=== PATIENT | female | born 1975 | race American Indian/Alaskan Native ===

== ENCOUNTER 2021-06-04 14:49 | Emergency (ER) | payer SELFPAY ==
[2021-06-04 16:34] VITALS: BP 127/98
--- NOTE | 2021-06-05 07:59 | Emergency Department Report ---
Abscess Boil HPI - HPI Chief Complaint: Skin/Abscess/Foreign Body Stated Complaint: BOIL (ABSCESS) ON VAGINA Time Seen by Provider: 06/05/21 07:54 Duration: 1 Week Location: Other (left labia majora) History: Yes Pain, Yes Purulent Drainage, No Fever, No Numbness, No Foreign Body, No Previous History, No Insect Bite HPI: 45-year-old female presents to the ER today with complaints of a tender swollen area to her left labia majora. Patient states that started small about 1 week ago but has since gotten worse. She states that while sitting in the waiting room she noticed that the area has started to drain. She denies any injury or insect bites to the area. She denies similar symptoms in the past. She denies any fever or chills. Home Medications: Previous Rx's Medication Instructions Recorded Last Taken Type Ibuprofen [Motrin] 600 mg PO Q8H PRN #30 tablet 06/05/21 Unknown Rx Sulfamethoxazole/Trimethoprim 1 each PO BID #14 tablet 06/05/21 Unknown Rx [Bactrim DS TAB] Allergies/Adverse Reactions: Allergies Allergy/AdvReac Type Severity Reaction Status Date / Time No Known Allergies Allergy Unverified 06/04/21 16:31 ED Review of Systems ROS: Stated complaint: BOIL (ABSCESS) ON VAGINA Other details as noted in HPI Comment: All other systems reviewed and negative Skin: other (abscess left labia majora) ED Past Medical Hx - Past Medical History Previous Medical History?: No - Surgical History Past Surgical History?: Yes Additional Surgical History: - Medications Home Medications: Home Medications Medication Instructions Recorded Confirmed Last Taken Type Ibuprofen [Motrin] 600 mg PO Q8H PRN #30 tablet 06/05/21 Unknown Rx Sulfamethoxazole/Trimethoprim 1 each PO BID #14 tablet 06/05/21 Unknown Rx [Bactrim DS TAB] ED Abscess Boil Physical Exam - Exam General: Vital signs noted. No distress. Alert and acting appropriately. Size: 2 cm Exam: Yes Tenderness, No Fluctuance, No Surrounding Cellulites/Erythema, No Lymphangitis, No Crepitation, No Heart Murmur, No Normal Neurologic Exam, No Normal Circulation Exam: Approximately 2 cm x 2 cm indurated swollen area noted distal aspect of the left labia majora. There is mild drainage. No cellulitis or lymphangitis noted. ED Course Vital Signs 06/04/21 16:32 Temperature 98.8 F Pulse Rate 81 Respiratory 20 Rate Blood Pressure 127/98 O2 Sat by Pulse 100 Oximetry Critical care attestation.: If time is entered above; I have spent that time in minutes in the direct care of this critically ill patient, excluding procedure time. ED Medical Decision Making - Medical Decision Making Patient has an abscess that is already draining to the left labia majora. No additional I&D indicated at this time. Patient will be started on antibiotics, and recommend doing warm compresses. Patient is not toxic, not ill-appearing or in any acute distress. She is neurologically intact with a normal gait. Her vital signs are stable. Discussed diagnosis and treatment plan with patient. Patient expressed understanding of all instructions and agree with plan. Patient stable at time of discharge. ED Disposition Clinical Impression: Abscess of labia majora Disposition: HOME / SELF CARE / HOMELESS Is pt being admited?: No Does the pt Need Aspirin: No Condition: Stable Instructions: Skin Abscess, [id number] Additional Instructions: I recommend he take the Bactrim as prescribed. Recommend that you do the warm compresses as discussed. Take the ibuprofen as prescribed for pain. Follow-up closely with your primary care doctor. Return to the ER if your symptoms changes or worsens in any way. Prescriptions: Sulfamethoxazole/Trimethoprim [Bactrim DS TAB] 1 each PO BID #14 tablet Ibuprofen [Motrin] 600 mg PO Q8H PRN #30 tablet PRN Reason: Pain Referrals: [facility] [Provider Group] - 3-5 Days Time of Disposition: 07:59
== END 2021-06-05 08:07 | disposition home or self-care (01) ==
LOC: ED 14:49
DX: N76.4 Abscess of vulva (principal); Z98.890 Other specified postprocedural states; Z79.899 Other long term (current) drug therapy
CPT/HCPCS: 99281